=== PATIENT | female | born 1980 | race Caucasian/White ===

== ENCOUNTER 2018-05-04 19:44 | Emergency (ER) | payer SELFPAY ==
[~2018-05-04] VITALS: Ht 165.1 cm; Wt 65.8 kg
[2018-05-04] MEDS ORDERED: IV NORMAL SALINE 1000 ML BAG IV ONE (20:00)
[2018-05-04] MEDS ORDERED: ONDANSETRON 4 MG/2 ML VIAL IV ONE (20:00)
[2018-05-04] MEDS ORDERED: ONDANSETRON 4 MG/2 ML VIAL ONE (20:04)
[2018-05-04 20:34] LABS: BASOPHILS % (AUTO) 0.1 % (0.0-2.0); EOSINOPHILS # (AUTO) 0.1 K/uL (0.0-0.7); EOSINOPHILS % (AUTO) 0.5 % (0.0-7.0); HEMATOCRIT 42.7 % (31.2-41.9); HEMOGLOBIN 14.8 g/dL (10.9-14.3); LYMPHOCYTES # (AUTO) 0.4 K/uL (20.0-40.0); LYMPHOCYTES % (AUTO) 4.1 % (20.5-51.5); MEAN CORPUSCULAR HEMOGLOBIN 30.1 uug (24.7-32.8); MEAN CORPUSCULAR HGB CONC 35 g/dL (32.3-35.6); MEAN CORPUSCULAR VOLUME 87.3 fL (75.5-95.3); MONOCYTES # (AUTO) 0.9 K/uL (2.0-10.0); MONOCYTES % (AUTO) 8.4 % (0.0-11.0); NEUTROPHILS # (AUTO) 9.4 K/uL (1.8-8.9); NEUTROPHILS % (AUTO) 86.9 % (38.5-71.5); PLATELET COUNT (AUTO) 187 K/uL (179-408); WHITE BLOOD COUNT (AUTO) 10.8 K/uL (3.8-11.8)
[2018-05-04] MEDS ORDERED: IV 0.9% SODIUM CHLORID+ 20 KCL 1,000 ML IV ONE (20:46)
[2018-05-04] MEDS ORDERED: IV 0.9% SODIUM CHLORID+ 20 KCL 1,000 ML ONE (20:50)
[2018-05-04 21:10] LABS: BILIRUBIN,DIRECT 0.2 mg/dL (0.0-0.2); BILIRUBIN,TOTAL 0.6 mg/dL (0.2-1.0); POTASSIUM 3.7 mmol/L (3.5-5.1); TOTAL PROTEIN, SERUM 7.7 g/dL (6.4-8.2)
[2018-05-04] MEDS ORDERED: KETOROLAC TROMETHAMINE 30 MG INJ ONE (21:52)
[2018-05-04] MEDS ORDERED: KETOROLAC TROMETHAMINE 30 MG INJ IVP ONE (22:00)
--- NOTE | 2018-05-04 23:01 | NUR ---
Patient discharged to home in stable conditon. Written and verbal after care instructions given. Patient verbalizes understanding of instructions.
--- NOTE | 2018-05-11 09:30 | NUR ---
LATE ENTRY: 05/04/18: NS 1000ML + 20MEQ KLC AT 500ML/HR VIA SALINE LOCK TO RFA START TIME: 2099 END TIME: 2300
== END 2018-05-04 23:02 | disposition home or self-care (01) ==
LOC: ER 19:45
DX: R11.2 Nausea with vomiting, unspecified (principal); R19.7 Diarrhea, unspecified; M79.10 Myalgia, unspecified site
CPT/HCPCS: 36415; 80048; 80076; 83690; 85025; 96361; 96365; 96366; 96375; 99283; J1885; J2405; A4663; J7030